=== PATIENT | female | born 1960 | race Caucasian/White ===

== ENCOUNTER → 2017-03-24 | Outpatient (CLI) | payer MEDICARE ==
[~2017-03-24] MED LIST: ALPRAZOLAM0.25 MG PO; AMLODIPINE5 M1 PO; ASPIRIN 81MG TA81 MG PO; ASPIRIN81 MG PO; ATORVASTATIN 4040 MG PO; BISOPROLOL 5MG T5 MG PO; BREO ELLIPTA1 POW INH; CELEXA20 MG PO; CIPRO 500MG TA500 MG PO; CYCLOBENZAPRINE10 MG PO; CYMBALTA30 M1 PO; D-10001 TAB PO; DAILY MULTIPLE1 TA8; ESTRADIOL1 MG PO; GLUCOSAMINE1000 MG PO; IBU-8800 MG PO; INCRUSE EL62.5 MCG/A INH; IPRATROPIUM BROM3 M1 IH; K-EFFERVESCENT25 MEQ PO; LASIX 20MG. TAB20 MG PO; LEVOTHYROXIN0.025 M1 PO; LIPITOR20 MG PO; LOSARTAN POTASS1 TAB PO; LYRICA50 MG PO; MEDROL 4MG. DOSE4 MG PO; NEXIUM40 MG PO; OMEPRAZOLE40 MG PO; PHENERGAN 25MG.25 M1 PO; POTASSIUM CHLO10 ME3 PO; SPIRIVA18 MCG IH; TRAMADOL 50MG T50 M1 PO; ULTRAM 50 MG TA50 MG PO; XANAX 0.25MG0.25 MG PO; ZOFRAN 8MG TABLE8 MG PO; Zofran4 MG PO
--- NOTE | 2017-03-24 13:55 | RADIOLOGY REPORT PS360 ---
History and Indications: Hypertension, hyperlipidemia, tobacco use, family history, chest pain, shortness of breath. Procedure: Patient received a 0.4 mg of Lexiscan, resting heart rate was 60 bpm, resting blood pressure 152/60, with Lexiscan maximum heart rate achieved was 87 bpm which is less than 85% of the maximum predicted heart rate and a blood pressure was 150/64. With Lexiscan no symptoms recorded. Electrocardiogram: Resting electrocardiogram showed sinus rhythm right ventricular conduction delay, with Lexiscan there is less than 1.[address] segment depression noted from the baseline EKG. The EKG portion of the Lexiscan Myoview is nondiagnostic. Cardiac stress and resting SPECT images: Cardiac stress and resting SPECT images were obtained using technetium 99 Myoview 10.2 mCi at rest and 31.6 mCi at stress, gated SPECT further analysis of segmental wall motion and calculation of the ejection fraction also done. Cardiac stress and resting SPECT images show a mild fixed defect in the anterior wall with normal contractility on the suspect likely secondary to soft tissue attenuation from the breast, no obvious reversible ischemia seen. Computer derived ejection fraction is over 65% with no obvious regional wall motion abnormality, right ventricle is mildly enlarged with normal contractility. Conclusion: 1. The EKG portion of the Lexiscan Myoview is nondiagnostic. 2. No obvious scintigraphic evidence of reversible ischemia seen, either derived ejection fraction is over 65% with no obvious regional wall motion abnormality, right ventricle is mildly enlarged with normal contractility.
== END ==
LOC: RAD 06:43
DX: R07.9 Chest pain, unspecified (principal); R42 Dizziness and giddiness
CPT/HCPCS: A9502; J2785

== ENCOUNTER 2017-04-08 09:50 | Day surgery (SDC) | payer MEDICARE ==
[~2017-04-08] VITALS: Ht 180.3 cm; Wt 106.6 kg
--- NOTE | 2017-04-08 12:40 | Operative Note ---
Endoscopy Report Date: 04/08/17 Preoperative diagnosis: Cramping abdominal pain, diarrhea Procedure Type of procedure: Total colonoscopy to terminal ileum with biopsies and polypectomy by snare Indications: Patient is a 56-year-old white female from [place] with a history of chronic obstructive pulmonary disease, sleep apnea referred from [facility] for colonoscopy to evaluate symptoms of abdominal pain and change in bowel habits. For one to 2 months she has had symptoms of pain across her upper abdomen and down her LEFT side. She describes some change in her bowel habits with brownish blackish diarrhea. Patient states that she does have a prior history of colitis. She underwent what she describes as a colon resection for hemorrhoids many years ago. She's never had colonoscopy. She describes fecal incontinence. Denies any bleeding. She underwent stool panel which was negative. Interestingly, the patient has upcoming testing consistent with cardiac stress test, carotid duplex, and CT scan of the abdomen. Consent was obtained and patient was taken to same-day surgery endoscopy procedure room. She was positioned in a lateral decubitus position. Adequate intravenous sedation was achieved with anesthesia titration of propofol. Variable stiffness Olympus colonoscope was inserted via the anus. With some minor difficulty was advanced to the cecum. She had somewhat of a floppy colon and some moderate sigmoid diverticulosis. Ileocecal valve and appendiceal orifice were clearly identified. Colonoscope was advanced into the terminal ileum which appeared grossly normal. Adjacent to the ileocecal valve there was a moderate polyp removed with hot snare. As the colonoscope was withdrawn to the colon random colon biopsies were obtained differentiated RIGHT and LEFT. There was some findings consistent with mild melanosis but no obvious colitis. He had some sigmoid diverticulosis. There were additional polyps encountered in the sigmoid and rectosigmoid which are removed with hot snare and cold biopsy forceps. Total of 4 polyps were removed. Colonoscope was withdrawn Findings 1. Diverticulosis 2. Polyp Follow-Up Follow-Up: Plan to follow-up on the biopsy results and pathology of the polyps. Likely repeat colonoscopy in 3-5 years pending pathology. May benefit from fiber supplementation. at 1240
[2017-04-08 13:33] VITALS: BP 132/65
== END 2017-04-08 13:05 | disposition home or self-care (01) ==
LOC: SDC 09:50
PROVIDERS: Surgery
PROC: 0DBG8ZX Excision of Left Large Intestine, Via Natural or Artificial Opening Endoscopic, Diagnostic (ICD-10-PCS; 2017-04-08)
PROC: 0DBF8ZX Excision of Right Large Intestine, Via Natural or Artificial Opening Endoscopic, Diagnostic (ICD-10-PCS; 2017-04-08)
PROC: 0DBF8ZX Excision of Right Large Intestine, Via Natural or Artificial Opening Endoscopic, Diagnostic (ICD-10-PCS; 2017-04-08)
PROC: 0DBG8ZX Excision of Left Large Intestine, Via Natural or Artificial Opening Endoscopic, Diagnostic (ICD-10-PCS; 2017-04-08)
PROC: 0DBN8ZX Excision of Sigmoid Colon, Via Natural or Artificial Opening Endoscopic, Diagnostic (ICD-10-PCS; principal; 2017-04-08 10:30)
DX: K57.90 Diverticulosis of intestine, part unspecified, without perforation or abscess without bleeding (principal); K63.5 Polyp of colon; R10.9 Unspecified abdominal pain; R19.7 Diarrhea, unspecified

== ENCOUNTER → 2017-05-29 | Outpatient (CLI) | payer MEDICARE ==
--- NOTE | 2017-06-01 20:44 | RADIOLOGY REPORT PS360 ---
DIG MAMM-SCREEN NADEGE W/CAD CAD Screening COMPARISON: Digital mammograms 04/29/2016 and 04/25/2015 INDICATION: There is no personal or family history of breast cancer. TECHNIQUE: Standard CC and MLO images were obtained. R2 CAD reviewed. FINDINGS: Moderate scattered fibroglandular densities are seen in central portions of both breasts. There is a mole marker left breast. There are a couple benign-appearing calcifications left breast and there is a stable benign-appearing nodular density axillary tail right breast. There is no suspicious lesion and there are no suspicious microcalcifications. IMPRESSION: Stable exam no suspicious lesion seen recommend yearly follow-up BI-RADS CATEGORY: 2_Benign RECOMMENDED FOLLOWUP: 12M 12 MONTH FOLLOW-UP (A letter has been sent to the patient regarding results of the study.)
== END ==
LOC: RAD 09:00
DX: Z12.31 Encounter for screening mammogram for malignant neoplasm of breast (principal)
CPT/HCPCS: G0202

== ENCOUNTER → 2017-07-29 | Outpatient (CLI) | payer MEDICARE | LOC: RAD 09:55 | DX: Z87.891 Personal history of nicotine dependence (principal); Z12.2 Encounter for screening for malignant neoplasm of respiratory organs | CPT/HCPCS: G0297 ==